=== PATIENT | female | born 1980 | race Caucasian/White ===

== ENCOUNTER 2021-01-21 07:34 | Emergency (ER) | payer MEDICARE, MEDICAID, SELFPAY ==
--- NOTE | ~2021-01-21 | CT_ITS ---
EXAMINATION: CT cervical spine wo con DATE: 01/21/2021 09:51 INDICATION: Fall with head injury TECHNIQUE: Computed tomography (CT) of the cervical spine was performed without intravenous contrast. Automated exposure control and iterative reconstruction technique were employed. The dose-length pro duct was 423.63 mGy-cm. COMPARISON: None FINDINGS: Mild cervical levocurvature which could be positional. Sagittal alignment is normal. Vertebral body a nd disc heights are normal. No fracture. Minimal to mild cervical uncovertebral and facet osteoarthri tis, the latter greatest on the left at C4-C5. No central canal or neural foraminal stenosis. 1.8 cm left thyroid nodule and subcentimeter rim calcified right thyroid nodule. Cervical soft tissues are o therwise unremarkable. Mild biapical emphysema. IMPRESSION: 1. Minimal cervical spondylosis. No acute osseous abnormality. 2. Mild emphysema. 2. Multinodular goiter including 1.8 cm left thyroid nodule. Consider thyroid ultrasound for risk str atification. Reviewed, dictated and finalized at location A. IMPRESSION: 1. Minimal cervical spondylosis. No acute osseous abnormality. 2. Mild emphysema. 2. Multinodular goiter including 1.8 cm left thyroid nodule. Consider thyroid u ltrasound for risk stratification.
--- NOTE | ~2021-01-21 | CT_ITS ---
EXAMINATION: CT brain wo con DATE: 01/21/2021 09:50 INDICATION: Head injury post fall with laceration at the forehead. TECHNIQUE: Computed tomography (CT) of the head was performed without intravenous contrast. Sagittal and coronal reconstructions were performed. The mA was adjusted according to patient size. Iterative reconstruction technique was employed. The dose-length product was 681.00 mGy-cm. COMPARISON: head CT dated 06/27/2014 FINDINGS: Old left frontotemporal parietal craniotomy. No acute fracture. Moderate sized region of encephalomal acia in the left frontal and temporal lobes and left basal ganglia likely sequela chronic infarct. Th ere is associated ex vacuo dilation of the left lateral ventricle. No acute intracranial hemorrhage, acute infarction or abnormal extra axial fluid collection. No mass/mass effect. The orbits, paranasal sinuses and mastoid air cells are normal. IMPRESSION: 1. No fracture or acute intracranial process. 2. Encephalomalacia in the left frontal and temporal lobes and left basal ganglia consistent with chr onic infarct in the left middle cerebral artery vascular distribution. Reviewed, dictated and finalized at location A. IMPRESSION: 1. No fracture or acute intracranial process. 2. Encephalomalacia in the left frontal and temporal lobes and left basal gangl ia consistent with chronic infarct in the left middle cerebral artery vascular distribution.
[2021-01-21 07:49] VITALS: BP 112/75; PULSE 80; RESP 16; TEMP 36.6; O2SAT 100
[2021-01-21 09:14] VITALS: BP 107/64; PULSE 67; RESP 18; O2SAT 98
[2021-01-21 09:18] LABS: Basophils Absolute Auto 0.05 K/mm3 (0.00-0.10); Basophils Percent Auto 0.6 % (0.0-1.0); Eosinophils Percent Auto 1.3 % (1.0-6.0); Hematocrit 28.3 % (35.0-49.0); Hemoglobin 8.3 g/dL (12.0-15.0); Immature Granulocyte Absolute 0.03 K/mm3 (0.00-0.00); Immature Granulocyte Percent A 0.4 % (0.0-0.0); Lymphocytes Absolute Auto 1.49 K/mm3 (1.10-4.50); Mean Corpuscular HGB Conc 29.3 g/dL (32.0-36.0); Mean Corpuscular Volume 75.1 fL (78.0-102.0); Monocytes Absolute Auto 0.45 K/mm3 (0.10-0.90); Monocytes Percent Auto 5.7 % (2.0-11.0); Neutrophils Absolute Auto 5.7 K/mm3 (1.7-7.2); Platelet Count Result 474 K/mm3 (150-420); Red Blood Count 3.77 M/mm3 (4.20-5.40); Red Cell Distribution Width 17.6 % (11.6-14.4); White Blood Count 7.8 K/mm3 (4.8-10.8)
[2021-01-21 09:27] LABS: SPREG INTERNAL CONTROL Positive; Serum Qual hCG Negative
[2021-01-21 09:31] LABS: INR 1.2; Partial Thromboplastin Time 27.6 SEC (23.90-30.70)
[2021-01-21 09:38] LABS: Alanine Aminotransferase 19 U/L (14-59); Albumin Level 3.3 g/dL (3.4-5.0); Alkaline Phosphatase 89 U/L (46-116); Anion Gap 8 mmol/L (8-16); Aspartate Amino Transferase 19 U/L (15-37); Bilirubin,Total 0.2 mg/dL (0.00-1.00); Blood Urea Nitrogen 5 mg/dL (7-18); Carbon Dioxide 30 mmol/L (21-32); Chloride 101 mmol/L (98-108); Estimated CRCL calculation 71 ml/min; Estimated Glomerular Filt Rate > 60; Glucose 91 mg/dL (70-99); Osmolality Calculated 285 mOsm/kg (285-295); Sodium 139 mmol/L (136-145); Total Protein 7.1 g/dL (6.4-8.2); Troponin I < 4.0 ng/L (0.00-60.4)
[2021-01-21 09:39] LABS: Ethanol < 3 mg/dL (0-6)
[2021-01-21 10:16] VITALS: BP 105/63; PULSE 68; RESP 18; O2SAT 99
--- NOTE | 2021-01-21 10:41 | ECG_ITS ---
Measurements Intervals [place] Rate: 63 P: 47 AR: 192 QRS: 20 QRSD: 73 T: 29 QT: 415 QTc: 427 Interpretive Statements SINUS RHYTHM BASELINE ARTIFACT- I, II, III, AVR, AVL, AVF NORMAL ECG Electronically Signed On 01-22-2021 7:20:29 CDT by Lew Newell D.O.
[2021-01-21] MEDS: POTASSIUM BICARBONATE 25 MEQ TABEF 50 MEQ PO (10:44)
--- NOTE | 2021-01-21 10:46 | ED.FALL ---
HPI - Fall General Chief Complaint: Fall Stated Complaint: Ambulance Source: patient and other (live in boyfriend) Mode of arrival: ambulatory Limitations: no limitations History of Present Illness HPI Narrative: Patient is brought in after a fall at home in which she feel on her forehead and scraped her forehead. She was coughing and after a coughing spell had a syncopal episode. She reportedly regularly has coughing spells. She was not responding well MD complaint: fall Onset (ago): minute(s) Fall from: other (off couch after a coughing spell) Place fall occurred: home Loss of consciousness: unsure Length of LOC: second(s) Prolonged down time: no Symptoms prior to fall: none Context: other (unclear as to cause) Location of injury: head (scraped forehead) Severity: moderate Associated symptoms (after fall): denies Related Data Home Medications Medication Instructions Recorded Confirmed cyclobenzaprine 10 mg PO TID PRN 01/21/21 01/21/21 escitalopram oxalate 20 mg PO DAILY 01/21/21 01/21/21 levetiracetam 750 mg PO Q12H 01/21/21 01/21/21 rivaroxaban [Xarelto] 20 mg PO DAILY 01/21/21 01/21/21 Allergies Allergy/AdvReac Type Severity Reaction Status Date / Time Sulfa (Sulfonamide Allergy Unknown Verified 01/21/21 08:02 Antibiotics) msg Allergy Agitated Uncoded 01/21/21 08:02 Review of Systems Constitutional: Constitutional: Reports no additional constitutional complaints Eyes: Eyes: Reports no additional eye complaints ENT: Reports system reviewed and no additional complaints, except as documented Cardiovascular: Cardiovascular: Reports no additional cardiovascular complaints Respiratory: Respiratory: Reports no additional respiratory complaints Gastrointestinal: Gastrointestinal: Reports no additional gastrointestinal complaints Genitourinary: Genitourinary: Reports no additional female genitourinary complaints Musculoskeletal: Musculoskeletal: Reports no additional musculoskeletal complaints Integumentary/Breasts: Skin/Breast: Reports system reviewed and no additional complaints, except as docu Neurologic: Reports system reviewed and no additional complaints, except as documented Psychiatric: Psychiatric: Reports no additional psychiatric complaints Endocrine: Endocrine: Reports no additional endocrine complaints Hematologic/Lymphatic: Hematologic/Lymphatic: Reports no additional hematologic/lymphatic complaints Allergic/Immunologic: Allergic/Immunologic: Reports no additional allergic/immunologic complaints [facility] Past Medical History Medical History (Updated 01/21/21 @ 11:14 by Wilfredo Billingsley MD) CVA (cerebral vascular accident) Epilepsy Surgical History Surgical History (Updated 01/21/21 @ 11:03 by Wilfredo Billingsley MD) H/O adenoidectomy H/O tubal ligation Family History Family History (Updated 01/21/21 @ 11:05 by Wilfredo Billingsley MD) Father CAD (coronary artery disease) Hypertension Social History Social History (Updated 01/21/21 @ 11:06 by Wilfredo Billingsley MD) Smoking status: Current every day smoker Tobacco type: cigarettes Alcohol intake: never Living arrangements: with friend(s) Occupation/Education: unemployed Sexual Orientation (if Verbalized by the Patient): Straight or Heterosexual Exam Const: General: no acute distress Orientation/consciousness: patient oriented x3 Limitations: altered mental status HENMT: Head: normal to inspection Ears: external ears normal and TM's normal bilaterally General nose exam: Normal external nose present Mouth: Yes Normal oral and palatal mucosa present Throat: posterior oropharynx normal Eyes: Conjunctivae: conjunctivae normal Neck: Neck: normal visual inspection Chest: Chest palpation & inspection: normal inspection of the chest Resp: Effort & Inspection: normal respiratory effort Auscultation: clear to auscultation bilaterally Cardio: Rate: regular rate Rhythm: regular rhythm GI: Auscultation: normal bowel
[2021-01-21 10:47] LABS: Appearance Urine Clear (Clear); Bilirubin Urine Negative (Negative); Color Urine Yellow (Yellow); Glucose Urine UA Negative (Negative); Ketones Urine Negative (Negative); Leukocyte Esterase Ur 1+ (Negative); Nitrate Urine Negative (Negative); Protein Urine Negative (Negative); Urobilinogen Urine 0.2 mg/dL (0.2-1.0)
[2021-01-21 10:51] LABS: Add Urine Microscopic? YES; Bacteria Urine Trace /hpf; Blood Urine Trace-lysed (Negative); RBC Urine 0-2 /hpf (0-2); Squamous Epithelial Cell Urine Few /hpf (Few); WBC Urine 0-3 /hpf (0-3)
[2021-01-21 10:52] LABS: Magnesium 2.4 mg/dL (1.8-2.4)
[2021-01-21 11:20] VITALS: BP 158/73; PULSE 86; RESP 16; O2SAT 98
[2021-01-21 12:00] VITALS: BP 117/71; PULSE 71; RESP 16; O2SAT 97
[2021-01-22 14:40] LABS: Free T4 Free Thyroxine 1.15 ng/dL (0.76-1.46); Thyroid Stimulating Hormone 0.97 uIU/mL (0.36-3.74)
== END 2021-01-21 12:00 | disposition home or self-care (01) ==
PROVIDERS: Emergency Provider Emergency Medicine; PCP Family Medicine
DX: R55 Syncope and collapse (principal); N30.01 Acute cystitis with hematuria; D50.0 Iron deficiency anemia secondary to blood loss (chronic); Z79.899 Other long term (current) drug therapy; Z86.73 Personal history of transient ischemic attack (TIA), and cerebral infarction without residual deficits; F17.200 Nicotine dependence, unspecified, uncomplicated
CPT/HCPCS: 36415; 70450; 72125; 80053; 80307; 81001; 83735; 84439; 84443; 84484; 84703; 85025; 85610; 85730; 93005; 96365; 99283; 99284; A9270; J0696

== ENCOUNTER 2021-01-24 12:14 | Outpatient (CLI) | payer MEDICARE, MEDICAID, SELFPAY ==
--- NOTE | ~2021-01-24 | US_ITS ---
US thyroid INDICATION: Follow-up thyroid nodules TECHNIQUE: Real-time sonographic images of the thyroid gland were obtained. COMPARISON: No prior studies for comparison. FINDINGS: The right thyroid lobe measures 5.5 x 1.5 x 1.7 cm. The left thyroid lobe measures 4.8 x 1 .8 x 1.5 cm. Thyroid echotexture is diffusely heterogeneous with multiple bilateral thyroid nodules. Isthmus measures 3 mm. The largest dominant mass in the right thyroid gland measures 8 x 8 x 7 mm and appears solid, predominantly hypoechoic, wider than tall, circumscribed margins with peripheral calc ifications, TR 4 (moderately suspicious). There are multiple left thyroid masses, largest dominant ma ss is almost completely solid, slightly hyperechoic, wider than tall, irregular margins without defin ite calcifications. This mass measures 1.6 x 1.6 x 1.6 cm, TR 4, moderately suspicious. IMPRESSION: 1. Enlarged thyroid gland containing multiple bilateral masses. Recommend ultrasound-guided fine-nee dle aspiration biopsy of dominant bilateral thyroid masses. Reviewed, dictated and finalized at location A. IMPRESSION: 1. Enlarged thyroid gland containing multiple bilateral masses. Recommend ultr asound-guided fine-needle aspiration biopsy of dominant bilateral thyroid pamela s.
== END 2021-01-24 12:15 | disposition home or self-care (01) ==
LOC: CHSIMG 12:18
PROVIDERS: PCP Family Medicine; Visit Provider Family Medicine
DX: E04.1 Nontoxic single thyroid nodule (principal)
CPT/HCPCS: 76536

== ENCOUNTER → 2021-01-27 04:10 | Outpatient (CLI) | payer MEDICARE, MEDICAID, SELFPAY ==
[2021-01-27 19:45] LABS: SARS-CoV-2 RNA PCR Negative
== END ==
PROVIDERS: PCP Family Medicine; Visit Provider Internal Medicine Gastroenterology
DX: Z01.812 Encounter for preprocedural laboratory examination (principal); Z20.822 Contact with and (suspected) exposure to COVID-19
CPT/HCPCS: C9803; U0003; U0005

== ENCOUNTER 2021-01-31 01:45 | Day surgery (SDC) | payer MEDICARE, MEDICAID, SELFPAY ==
[2021-01-25 16:13] VITALS: BMI 28.3
[2021-01-31] MEDS: LACTATED RINGERS 1,000 ML 150 ML IV CONT (10:21)
[2021-01-31 10:28] VITALS: BP 103/64; PULSE 78; RESP 18; TEMP 36.9; O2SAT 100
--- NOTE | 2021-01-31 10:38 | WPDANESEPPF ---
Anes - Initial Pre Proc Eval Procedure: Operation Date: 01/31/21 11:00 Proposed Procedures p Esophagogastroduodenoscopy & Colonoscopy - Wilfredo Dooley MD Date/Time: 01/31/21 10:38 Surgeon: Wilfredo Dooley MD Pre Op Diagnosis: iron deficiency anemia Patient Data Age: 40 Gender: F Height: 5 ft 3 in Weight: 73 kg Last Vital Signs Temp 98.4 F 01/31/21 10:28 Pulse 78 01/31/21 10:28 Resp 18 01/31/21 10:28 BP 103/64 01/31/21 10:28 Pulse Ox 100 01/31/21 10:28 Allergies Allergy/AdvReac Type Severity Reaction Status Date / Time Sulfa (Sulfonamide Allergy Severe Headache Verified 01/31/21 09:49 Antibiotics) msg Allergy Severe Headache Uncoded 01/31/21 09:49 Home Medications Medication Instructions Recorded Confirmed Type cephalexin 500 mg PO Q8H #15 cap 01/21/21 01/31/21 Rx cyclobenzaprine 10 mg PO DAILY 01/21/21 01/25/21 History escitalopram oxalate 20 mg PO DAILY 01/21/21 01/25/21 History levetiracetam 500 mg PO Q12H 01/21/21 01/31/21 History rivaroxaban [Xarelto] 20 mg PO DAILY 01/21/21 01/31/21 History ascorbic acid (vitamin C) 500 mg PO DAILY 01/25/21 01/25/21 History ferrous sulfate 325 mg PO BID 01/25/21 01/25/21 History Patient hx anesthesia problems: none Family hx anesthesia problems: none PMFSH Past Medical History Medical History (Updated 01/31/21 @ 10:43 by Wilfredo Dooley MD) CVA (cerebral vascular accident) Epilepsy Surgical History Surgical History (Updated 01/21/21 @ 11:03 by Wilfredo Billingsley MD) H/O adenoidectomy H/O tubal ligation Family History Family History (Updated 01/21/21 @ 11:05 by Wilfredo Billingsley MD) Father CAD (coronary artery disease) Hypertension Social History Social History (Updated 01/21/21 @ 11:06 by Wilfredo Billingsley MD) Smoking packs per day: 0.75 Smoking cigarettes per day: 15.0 Years smoked: 25 Smoking pack-years: 18.75 Smoking status: Light tobacco smoker Tobacco type: cigarettes Alcohol intake: never Substance use: current Substance use type: marijuana Other substance usage details: DAILY Living arrangements: with family Spiritual care concerns: No Anes - Eval Final PreProcedure Day of Procedure 01/31/21 10:38 Patient weight: overweight Heart: regular rate and rhythm Lungs: clear to auscultation Airway: Mallampati scale class III Neurological: alert and oriented Last oral intake: >/= 8 hours ASA classification: III Emergent: no Anesthetic plan: proceed Anesthesia type and monitoring: general GIVS and standard monitoring Informed Consent: The patient's anesthetic plan and its attendant risks and benefits were discussed with the patient/family/POA. Questions were solicited and answers provided to the satisfaction of the patient/family/POA.
--- NOTE | 2021-01-31 10:39 | WPDGICN ---
Assessment and Plan Assessment and plan (1) LILY (iron deficiency anemia): Code(s): D50.9 - Iron deficiency anemia, unspecified Status: Acute Assessment and Plan: Because of iron deficiency anemia and need for continued anticoagulation colonoscopy an EGD will be performed. If this not fruitful small bowel series would subsequently be considered. Iron replacement will be held briefly prior to endoscopy and restarted subsequently. Follow-up CBC advised after an interval to ensure response to therapy. Patient gives no obvious explanation for her iron deficiency anemia otherwise. (2) Chronic anticoagulation: Code(s): Z79.01 - terminal press operator (current) use of anticoagulants Status: Acute (3) Seizure disorder: Code(s): G40.909 - Epilepsy, unspecified, not intractable, without status epilepticus Status: Acute (4) History of CVA (cerebrovascular accident): Code(s): Z86.73 - Personal history of transient ischemic attack (TIA), and cerebral infarction without residual deficits Status: Acute GI Consult Note Consult date/time: 01/31/21 10:39 HPI: Abril Valera is a 40 year old female Referred because of iron deficiency anemia. 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 Because of this she suffers with seizure disorder and has been treated for depression. She had a DVT on her right lower extremity 2 years ago and has been maintained on Xarelto subsequently. Recently has complaints of nausea frequently. She is found to have iron deficiency anemia and is referred for both colonoscopy an EGD to evaluate more thoroughly. Patient denies any obvious blood in her stools. However she was identified as having occult blood in her urine, with a urinary tract infection, and may have had occult blood in her stool as well. Patient has recently completed treatment for urinary tract infection. Her family history is noncontributory. Review of Systems Review of Systems: All systems reviewed & are unremarkable except as noted in HPI and below PMFSH Past Medical History Medical History (Updated 01/31/21 @ 10:43 by Wilfredo Dooley MD) CVA (cerebral vascular accident) Epilepsy Surgical History Surgical History (Updated 01/21/21 @ 11:03 by Wilfredo Billingsley MD) H/O adenoidectomy H/O tubal ligation Family History Family History (Updated 01/21/21 @ 11:05 by Wilfredo Billingsley MD) Father CAD (coronary artery disease) Hypertension Social History Social History (Updated 01/21/21 @ 11:06 by Wilfredo Billingsley MD) Smoking packs per day: 0.75 Smoking cigarettes per day: 15.0 Years smoked: 25 Smoking pack-years: 18.75 Smoking status: Light tobacco smoker Tobacco type: cigarettes Alcohol intake: never Substance use: current Substance use type: marijuana Other substance usage details: DAILY Living arrangements: with family Spiritual care concerns: No Meds Home Medications and Allergies Home Medications Medication Instructions Recorded Confirmed Type cephalexin 500 mg PO Q8H #15 cap 01/21/21 01/31/21 Rx cyclobenzaprine 10 mg PO DAILY 01/21/21 01/25/21 History escitalopram oxalate 20 mg PO DAILY 01/21/21 01/25/21 History levetiracetam 500 mg PO Q12H 01/21/21 01/31/21 History rivaroxaban [Xarelto] 20 mg PO DAILY 01/21/21 01/31/21 History ascorbic acid (vitamin C) 500 mg PO DAILY 01/25/21 01/25/21 History ferrous sulfate 325 mg PO BID 01/25/21 01/25/21 History Allergies Allergy/AdvReac Type Severity Reaction Status Date / Time Sulfa (Sulfonamide Allergy Severe Headache Verified 01/31/21 09:49 Antibiotics) msg Allergy Severe Headache Uncoded 01/31/21 09:49 Vital Signs Vital Signs - 24 hr 01/31/21 10:28 Temperature 98.4 F Pulse Rate 78 Respiratory Rate 18 Blood Pressure 103/64 Pulse Oximetry 100 Exam Narrative: Exam Narrative: Physical exam reveals patient's vital signs be stable. HEENT exam reveals no scleral icteru
[2021-01-31] MEDS: ONDANSETRON INJ 4 MG/2 ML VIAL IV PUSH (10:45)
[2021-01-31] MEDS: BENZOCAINE (*SP) 60 ML SPRAY CAN (HURRICAINE) 1 SPRAY MUCOUS MEM (11:03)
[2021-01-31 11:32] VITALS: BP 128/78; PULSE 83; RESP 27; O2SAT 100
[2021-01-31 11:42] VITALS: BP 107/82; PULSE 74; RESP 17; O2SAT 100
[2021-01-31 11:52] VITALS: BP 120/82; PULSE 65; RESP 22; O2SAT 98
== END 2021-01-31 12:14 | disposition home or self-care (01) ==
PROVIDERS: PCP Family Medicine; Visit Provider Internal Medicine Gastroenterology
PROC: 0DJ08ZZ Inspection of Upper Intestinal Tract, Via Natural or Artificial Opening Endoscopic (ICD-10-PCS; CPT 43235; principal; 2021-01-31 11:00)
DX: D50.9 Iron deficiency anemia, unspecified (principal); K57.30 Diverticulosis of large intestine without perforation or abscess without bleeding; K64.8 Other hemorrhoids; K63.5 Polyp of colon; K22.70 Barrett's esophagus without dysplasia; K21.00 Gastro-esophageal reflux disease with esophagitis, without bleeding; G40.909 Epilepsy, unspecified, not intractable, without status epilepticus; Z79.01 Long term (current) use of anticoagulants; Z86.73 Personal history of transient ischemic attack (TIA), and cerebral infarction without residual deficits; F12.90 Cannabis use, unspecified, uncomplicated; F17.210 Nicotine dependence, cigarettes, uncomplicated
CPT/HCPCS: 45385; 43239; 88305; J2001; J2405; J2704; J7120

== ENCOUNTER 2021-02-20 13:07 | Outpatient (CLI) | payer MEDICARE, MEDICAID, SELFPAY ==
--- NOTE | ~2021-02-20 | US_ITS ---
EXAMINATION: US FNA w image guidance DATE: 02/20/2021 14:36 INDICATION: Bilateral thyroid nodules TECHNIQUE: A time-out was performed to verify the patient's name, date of , and procedure to be performed . Forensic Nurse images and images from prior thyroid ultrasound for reviewed. On both the prior and current s tudy the largest nodules in the right thyroid lobe corresponds to an 8 mm wide than tall, peripherall y calcified solid hypoechoic nodule with smooth margins for which TI RADS recommendation would be for annual follow-up (TI-RADS 4, moderately suspicious , FNA if >=1.5 cm, annual followup is >=1 cm). Th e procedure and its benefits and risks were discussed with the patient. Risks specifically discussed included bleeding and infection. I also discussed the right thyroid nodule not. The patient options o f either proceeding with biopsy or continued with annual ultrasound follow-up. The patient elected to defer biopsy of the right thyroid nodule. The patient understood the risks and agreed to proceed wit h biopsy of the left thyroid nodule. The neck was prepped and draped in the usual sterile manner. 3 mL 1% lidocaine was used for local anesthesia. 6 passes were made with a 25G needle into the lesion. Appropriate needle location was documented with continuous sonographic guidance. The specimens wer e passed to the radioisotope technologist in the room. A sterile bandage was applied. There were no immediate complications. FINDINGS: Grayscale ultrasound images demonstrate biopsy needles advanced into the 2.6 cm TI-RADS 4 right thyro id nodule. IMPRESSION: 1. Successful ultrasound-guided fine needle aspiration of the 2.6 cm TI-RADS 4 right thyroid nodule of concern. 2. Following discussion with the patient was elected to defer biopsy of the 8 mm TI-RADS 4 left thyro id nodule for which one-year ultrasound follow-up is indicated. Reviewed, dictated and finalized at location A. IMPRESSION: 1. Successful ultrasound-guided fine needle aspiration of the 2.6 cm TI-RADS 4 right thyroid nodule of concern. 2. Following discussion with the patient was elected to defer biopsy of the 8 m m TI-RADS 4 left thyroid nodule for which one-year ultrasound follow-up is iraj cated.
== END 2021-02-20 13:08 | disposition home or self-care (01) ==
LOC: ANHIMG 13:11
PROVIDERS: PCP Family Medicine; Visit Provider Family Medicine
DX: E04.9 Nontoxic goiter, unspecified (principal)
CPT/HCPCS: 10005; 88173; 88305

== ENCOUNTER 2022-03-11 14:15 | Emergency (ER) | payer MEDICARE, MEDICAID, SELFPAY ==
--- NOTE | ~2022-03-11 | CT_ITS ---
EXAMINATION: CT brain wo con DATE: 03/11/2022 15:29 INDICATION: Headache. TECHNIQUE: Computed tomography (CT) of the head was performed without intravenous contrast. The mA wa s adjusted according to patient size. Iterative reconstruction technique was employed. The dose-lengt h product was 681.00 mGy-cm. COMPARISON: Head CT 01/21/2021 FINDINGS: There is chronic encephalomalacia involving left frontal, temporal, and parietal lobes, lef t insula, and left basal ganglia. There are changes of left-sided craniotomy. There is no intracrania l hemorrhage, acute infarction, or abnormal intracranial mass lesion. There is ex vacuo dilatation of posterior body and temporal horn of left lateral ventricle. There is leftward displacement of the se ptum pellucidum. There is chronic 3 mm leftward midline shift at the foramen of Monro. There is anter oposterior elongation of the ocular globes. There is mild mucosal thickening in the ethmoid sinuses. The mastoid air cells are normal. IMPRESSION: 1. Left-sided chronic encephalomalacia. Reviewed, dictated and finalized at location A.
--- NOTE | ~2022-03-11 | XR_ITS ---
EXAMINATION: XR chest 1V portable 03/11/2022 17:35 INDICATION: Cough with weakness and shortness of breath PROCEDURE: AP portable chest COMPARISON: Comparison to multiple prior studies sequentially, with oldest reviewed study dated 06/02. FINDINGS: The lungs are clear. The cardiomediastinal silhouette is within normal limits. There are no pleural effusions. There is no pneumothorax suspected. IMPRESSION: 1: NO ACUTE CARDIOPULMONARY DISEASE. Reviewed, dictated and finalized at location A.
[2022-03-11 14:20] VITALS: BP 109/68; PULSE 73; RESP 16; TEMP 36.6; O2SAT 98
--- NOTE | 2022-03-11 14:32 | ED.HA ---
HPI - Headache General Chief Complaint: Headache Stated Complaint: dizziness, vomiting, headache, head pain/swelling Time Seen by Provider: 03/11/22 14:32 Source: patient and family Mode of arrival: wheelchair Limitations: language barrier and physical limitation History of Present Illness HPI Narrative: 41-year-old female with a history of cerebral aneurysm status post craniotomy 2013, right hemiplegia, seizure disorder on anticoagulation presents to the ER with -- severe generalized headache for the past 1 week -- she a transient glazed look with altered mental status which lasted an hour. She had her last seizure 8 years ago. No tonic clonic activity noted. -- Swelling over her left parietal flap and swelling of her left face -- no fever -- has nausea without any vomiting. -- No new focal neuro deficits. She has right-sided hemiplegia. MD elicited complaint: headache Pertinent past history: coagulopathy Onset (ago): week(s) ( started 1 week ago.) Onset description: gradually Location: diffuse Severity: severe Quality & Timing: aching Exacerbating factors: none Relieving factors: nothing Context: occurred at rest Associated symptoms: none, nausea and photophobia Treatments prior to arrival: none Related Data Home Medications Medication Instructions Recorded Confirmed cyclobenzaprine 10 mg tablet 10 mg PO DAILY 01/21/21 03/11/22 escitalopram oxalate 20 mg tablet 20 mg PO DAILY 01/21/21 03/11/22 levetiracetam 500 mg tablet 500 mg PO Q12H 01/21/21 03/11/22 rivaroxaban 20 mg tablet (Xarelto) 20 mg PO DAILY 01/21/21 03/11/22 ascorbic acid (vitamin C) 500 mg 500 mg PO DAILY 01/25/21 03/11/22 tablet ferrous sulfate 325 mg (65 mg 325 mg PO BID 01/25/21 03/11/22 iron) capsule,extended release Allergies Allergy/AdvReac Type Severity Reaction Status Date / Time Sulfa (Sulfonamide Allergy Severe Headache Verified 03/11/22 14:30 Antibiotics) msg Allergy Severe Headache Uncoded 01/31/21 09:49 Review of Systems Review of Systems: All systems reviewed & are unremarkable except as noted in HPI and below Constitutional: Constitutional: Reports as per HPI and Reports no additional constitutional complaints Eyes: Eyes: Reports as per HPI, Reports no additional eye complaints and Reports photophobia ENT: Reports system reviewed and no additional complaints, except as documented and Reports as per HPI Cardiovascular: Cardiovascular: Reports as per HPI and Reports no additional cardiovascular complaints Respiratory: Respiratory: Reports as per HPI and Reports no additional respiratory complaints Gastrointestinal: Gastrointestinal: Reports as per HPI and Reports no additional gastrointestinal complaints Genitourinary: Genitourinary: Reports no additional female genitourinary complaints and Reports as per HPI Musculoskeletal: Musculoskeletal: Reports no additional musculoskeletal complaints and Reports as per HPI Integumentary/Breasts: Skin/Breast: Reports system reviewed and no additional complaints, except as docu and Reports as per HPI Neurologic: Reports system reviewed and no additional complaints, except as documented and Reports as per HPI Comments: Left hemiplegia with dysarthria Psychiatric: Psychiatric: Reports no additional psychiatric complaints and Reports as per HPI Endocrine: Endocrine: Reports no additional endocrine complaints and Reports as per HPI Hematologic/Lymphatic: Hematologic/Lymphatic: Reports no additional hematologic/lymphatic complaints and Reports as per HPI Allergic/Immunologic: Allergic/Immunologic: Reports no additional allergic/immunologic complaints and Reports as per HPI [facility] Past Medical History Medical History (Updated 03/11/22 @ 18:16 by Abel Monahan MD) Cerebral aneurysm CVA (cerebral vascular accident) Epilepsy Surgical History Surgical History (Updated 01/21/21 @ 11:03 by Wilfredo Billingsley MD) H/O adenoidectomy H/O tubal ligation Family History
--- NOTE | 2022-03-11 14:42 | ECG_ITS ---
Measurements Intervals [place] Rate: 70 P: 52 [place]: 193 QRS: 18 QRSD: 87 T: 46 QT: 409 QTc: 443 Interpretive Statements SINUS RHYTHM DELAYED PRECORDIAL R/S TRANSITION BASELINE ARTIFACT- I, III, AVR, AVL, AVF, V5 BORDERLINE ECG Electronically Signed On 03-11-2022 15:09:46 CDT by Lew Newell D.O.
[2022-03-11 15:17] LABS: Basophils Absolute Auto 0.06 K/mm3 (0.00-0.10); Basophils Percent Auto 0.7 % (0.0-1.0); Eosinophils Absolute Auto 0.24 K/mm3 (0.02-0.50); Eosinophils Percent Auto 2.8 % (1.0-6.0); Hematocrit 41.5 % (35.0-49.0); Hemoglobin 14.1 g/dL (12.0-15.0); Immature Granulocyte Absolute 0.03 K/mm3 (0.00-0.00); Immature Granulocyte Percent A 0.4 % (0.0-0.0); Lymphocytes Absolute Auto 2.81 K/mm3 (1.10-4.50); Lymphocytes Percent Auto 33.2 % (18.0-42.0); Mean Corpuscular Hemoglobin 32.3 pg (27.0-31.0); Mean Platelet Volume 9.6 fl (9.2-11.8); Monocytes Absolute Auto 0.47 K/mm3 (0.10-0.90); Monocytes Percent Auto 5.5 % (2.0-11.0); Neutrophils Absolute Auto 4.9 K/mm3 (1.7-7.2); Neutrophils Percent Auto 57.4 % (50.0-70.0); Platelet Count Result 324 K/mm3 (150-420); Red Blood Count 4.37 M/mm3 (4.20-5.40); Red Cell Distribution Width 12.2 % (11.6-14.4); White Blood Count 8.5 K/mm3 (4.8-10.8)
--- NOTE | 2022-03-11 15:29 | PC.NURSE ---
pt in ct at this time.
[2022-03-11 15:43] LABS: Lactic Acid Reflex 2.3 mmol/L (0.4-2.0)
[2022-03-11 15:47] LABS: Alanine Aminotransferase 14 U/L (14-59); Albumin Level 3.5 g/dL (3.4-5.0); Alkaline Phosphatase 75 U/L (46-116); Anion Gap 7 mmol/L (8-16); Aspartate Amino Transferase 11 U/L (15-37); Bilirubin,Total 0.2 mg/dL (0.00-1.00); Blood Urea Nitrogen 5 mg/dL (7-18); Calcium 8.9 mg/dL (8.5-10.1); Carbon Dioxide 30 mmol/L (21-32); Chloride 103 mmol/L (98-108); Estimated CRCL calculation 77 ml/min; Estimated Glomerular Filt Rate > 60; Glucose 96 mg/dL (70-99); Magnesium 2.1 mg/dL (1.8-2.4); Osmolality Calculated 287 mOsm/kg (285-295); Potassium 2.8 mmol/L (3.5-5.1); Sodium 140 mmol/L (136-145); Thyroid Stimulating Hormone 1.01 uIU/mL (0.36-3.74); Total Protein 7.4 g/dL (6.4-8.2); Troponin I 4.6 ng/L (0.00-60.4)
--- NOTE | 2022-03-11 16:05 | PC.NURSE ---
pt is reporting pain to left side of head and face, states she is hungry and wants something to drink. erp aware. currently awaiting results. sig other at bedside. will continue to monitor.
[2022-03-11] MEDS: HYDROmorphone HCL INJ (*CRX) 2 MG/ML VIAL 0.5 MG IM (16:21)
[2022-03-11] MEDS: POTASSIUM CHLORIDE 20 MEQ TABLET 40 MEQ PO ×2 (16:22→18:05)
[2022-03-11] MEDS: ONDANSETRON HCL ODT 4 MG TABLET PO (16:23)
[2022-03-11] MEDS: SPIRONOLACTONE 25 MG TABLET PO (16:23)
--- NOTE | 2022-03-11 16:28 | PC.NURSE ---
sig other reports she had came back from the [place] earlier today, was confused, had a glazed over look on her face and fell over on the couch. pt is more alert at this time, states she does have a hx of seizures. pt is reporting pain, medication given as ordered. will continue to monitor.
[2022-03-11 16:29] VITALS: BP 90/54; PULSE 73; RESP 16; O2SAT 99
[2022-03-11 16:30] LABS: INR 1.2; Partial Thromboplastin Time 37.3 SEC (23.90-30.70)
[2022-03-11 16:46] LABS: Appearance Urine Clear (Clear); Bilirubin Urine Negative (Negative); Color Urine Light Yellow (Yellow); Glucose Urine UA Negative (Negative); Ketones Urine Negative (Negative); Leukocyte Esterase Ur Trace (Negative); Nitrate Urine Negative (Negative); Protein Urine Negative (Negative); Specific Grav Ur <= 1.005 (1.010-1.020); Urobilinogen Urine 0.2 mg/dL (0.2-1.0)
[2022-03-11 16:50] LABS: Add Urine Microscopic? YES; Blood Urine Trace-Intact (Negative); RBC Urine 0-2 /hpf (0-2); Squamous Epithelial Cell Urine Rare /hpf (Few); WBC Urine 0-3 /hpf (0-3)
[2022-03-11 16:51] LABS: Bacteria Urine Trace /hpf; Urine Pregnancy Test Negative
[2022-03-11 16:52] LABS: Pregnancy On Board Control Positive
[2022-03-11 17:50] VITALS: BP 102/71; PULSE 64; RESP 16; TEMP 36.6; O2SAT 98
--- NOTE | 2022-03-11 17:51 | PC.NURSE ---
PT IS RESTING ON STRETCHER IN EXAM ROOM, REPORTS SHE IS FEELING MUCH BETTER. SIG OTHER AT BEDSIDE. NAD NOTED. WILL CONTINUE TO MONITOR.
[2022-03-11 18:15] LABS: Reflex Lactic Acid Yes or No Add Lactic
[2022-03-11 18:24] VITALS: BP 109/77; PULSE 68; RESP 16; O2SAT 95
[2022-03-11] MEDS: diphenhydrAMINE HCl CAP 25 MG CAPSULE PO (18:33)
== END 2022-03-11 18:38 | disposition home or self-care (01) ==
PROVIDERS: Emergency Provider Internal Medicine Critical Care Medicine; PCP Family Medicine
DX: R51.9 Headache, unspecified (principal); R41.82 Altered mental status, unspecified; E87.6 Hypokalemia; Z86.73 Personal history of transient ischemic attack (TIA), and cerebral infarction without residual deficits
CPT/HCPCS: 36415; 70450; 71045; 80053; 81001; 81025; 83605; 83735; 84443; 84484; 85025; 85610; 85730; 93005; 96372; 99284; A9270; J1170

== ENCOUNTER 2022-06-13 16:00 | Outpatient (CLI) | payer MEDICARE, MEDICAID, SELFPAY ==
[2022-06-13 16:18] LABS: Basophils Absolute Auto 0.05 K/mm3 (0.00-0.10); Basophils Percent Auto 0.4 % (0.0-1.0); Eosinophils Absolute Auto 0.24 K/mm3 (0.02-0.50); Hematocrit 39.7 % (35.0-49.0); Hemoglobin 13.4 g/dL (12.0-15.0); Immature Granulocyte Absolute 0.04 K/mm3 (0.00-0.00); Immature Granulocyte Percent A 0.3 % (0.0-0.0); Lymphocytes Absolute Auto 2.45 K/mm3 (1.10-4.50); Lymphocytes Percent Auto 20.9 % (18.0-42.0); Mean Corpuscular HGB Conc 33.8 g/dL (32.0-36.0); Mean Corpuscular Hemoglobin 32.8 pg (27.0-31.0); Mean Corpuscular Volume 97.3 fL (78.0-102.0); Mean Platelet Volume 10.1 fl (9.2-11.8); Monocytes Absolute Auto 0.74 K/mm3 (0.10-0.90); Monocytes Percent Auto 6.3 % (2.0-11.0); Neutrophils Absolute Auto 8.2 K/mm3 (1.7-7.2); Neutrophils Percent Auto 70.1 % (50.0-70.0); Platelet Count Result 234 K/mm3 (150-420); Red Blood Count 4.08 M/mm3 (4.20-5.40); Red Cell Distribution Width 12.3 % (11.6-14.4); White Blood Count 11.7 K/mm3 (4.8-10.8)
[2022-06-13 16:43] LABS: Alanine Aminotransferase 12 U/L (14-59); Albumin Level 3.7 g/dL (3.4-5.0); Alkaline Phosphatase 58 U/L (46-116); Amylase 38 U/L (25-115); Anion Gap 6 mmol/L (8-16); Aspartate Amino Transferase < 10 U/L (15-37); Bilirubin,Total 0.2 mg/dL (0.00-1.00); Blood Urea Nitrogen 7 mg/dL (7-18); Calcium 8.7 mg/dL (8.5-10.1); Carbon Dioxide 33 mmol/L (21-32); Chloride 103 mmol/L (98-108); Estimated Glomerular Filt Rate > 60; Glucose 87 mg/dL (70-99); Lipase 35 U/L (73-393); Osmolality Calculated 291 mOsm/kg (285-295); Potassium 3.7 mmol/L (3.5-5.1); Sodium 142 mmol/L (136-145); Total Protein 6.7 g/dL (6.4-8.2)
== END 2022-06-13 16:01 | disposition home or self-care (01) ==
LOC: CHSLAB 16:04
PROVIDERS: PCP Family Medicine; Visit Provider Family Medicine
DX: R11.10 Vomiting, unspecified (principal)
CPT/HCPCS: 36415; 80053; 82150; 83690; 85025

== ENCOUNTER 2022-06-14 08:08 | Outpatient (CLI) | payer MEDICARE, SELFPAY ==
[2022-06-14 08:17] LABS: Bilirubin Urine 1+ (Negative); Blood Urine Negative (Negative); Glucose Urine UA Negative (Negative); Ketones Urine 2+ (Negative); Leukocyte Esterase Ur 1+ LEU/UL (Negative); Nitrate Urine Negative (Negative); Protein Urine 1+ (Negative); Specific Grav Ur >= 1.030 (1.010-1.020); Urobilinogen Urine 0.2 mg/dL (0.2-1.0)
[2022-06-14 08:25] LABS: Add Urine Microscopic? YES; Appearance Urine Cloudy (Clear); Color Urine Dark Yellow (Yellow); RBC Urine 0-2 /hpf (0-2)
[2022-06-14 08:26] LABS: Amorphous Sediment Urine Heavy; Bacteria Urine Unable to determine /hpf; Squamous Epithelial Cell Urine Many /hpf (Few)
== END 2022-06-14 08:09 | disposition home or self-care (01) ==
LOC: CHSLAB 08:10
PROVIDERS: PCP Family Medicine; Visit Provider Family Medicine
DX: R11.10 Vomiting, unspecified (principal); R82.90 Unspecified abnormal findings in urine
CPT/HCPCS: 81001; 87077; 87086; 87088; 87186

== ENCOUNTER 2022-08-28 08:29 | Outpatient (CLI) | payer MEDICARE, SELFPAY ==
[2022-08-28 08:48] LABS: Basophils Absolute Auto 0.04 K/mm3 (0.00-0.10); Basophils Percent Auto 0.4 % (0.0-1.0); Eosinophils Absolute Auto 0.33 K/mm3 (0.02-0.50); Eosinophils Percent Auto 3.4 % (1.0-6.0); Hemoglobin 13.4 g/dL (12.0-15.0); Immature Granulocyte Absolute 0.03 K/mm3 (0.00-0.00); Immature Granulocyte Percent A 0.3 % (0.0-0.0); Lymphocytes Absolute Auto 3.42 K/mm3 (1.10-4.50); Lymphocytes Percent Auto 35.3 % (18.0-42.0); Mean Corpuscular HGB Conc 34.4 g/dL (32.0-36.0); Mean Corpuscular Hemoglobin 32.8 pg (27.0-31.0); Mean Corpuscular Volume 95.4 fL (78.0-102.0); Mean Platelet Volume 10.5 fl (9.2-11.8); Monocytes Absolute Auto 0.76 K/mm3 (0.10-0.90); Monocytes Percent Auto 7.8 % (2.0-11.0); Neutrophils Absolute Auto 5.1 K/mm3 (1.7-7.2); Neutrophils Percent Auto 52.8 % (50.0-70.0); Platelet Count Result 256 K/mm3 (150-420); Red Blood Count 4.09 M/mm3 (4.20-5.40); Red Cell Distribution Width 12.8 % (11.6-14.4); White Blood Count 9.7 K/mm3 (4.8-10.8)
[2022-08-28 09:14] LABS: Alanine Aminotransferase 26 U/L (14-59); Albumin Level 3.8 g/dL (3.4-5.0); Alkaline Phosphatase 56 U/L (46-116); Anion Gap 11 mmol/L (8-16); Aspartate Amino Transferase 13 U/L (15-37); Bilirubin,Total 0.2 mg/dL (0.00-1.00); Blood Urea Nitrogen 7 mg/dL (7-18); Calcium 8.9 mg/dL (8.5-10.1); Carbon Dioxide 29 mmol/L (21-32); Chloride 97 mmol/L (98-108); Estimated Glomerular Filt Rate > 60; Glucose 86 mg/dL (70-99); Osmolality Calculated 281 mOsm/kg (285-295); Potassium 3.2 mmol/L (3.5-5.1); Sodium 137 mmol/L (136-145); Total Protein 7.2 g/dL (6.4-8.2)
[2022-08-30 08:56] LABS: Valproic Acid 73.1 mg/L (50.0-100.0)
== END 2022-08-28 08:30 | disposition home or self-care (01) ==
LOC: CHSLAB 08:32
PROVIDERS: PCP Family Medicine
DX: R56.9 Unspecified convulsions (principal)
CPT/HCPCS: 36415; 80053; 80164; 85025

== ENCOUNTER 2023-06-13 14:58 | Outpatient (CLI) | payer MEDICARE, SELFPAY ==
[2023-06-13 15:23] LABS: Basophils Absolute Auto 0.03 K/mm3 (0.00-0.10); Basophils Percent Auto 0.4 % (0.0-1.0); Eosinophils Absolute Auto 0.28 K/mm3 (0.02-0.50); Eosinophils Percent Auto 3.9 % (1.0-6.0); Hematocrit 40.4 % (35.0-49.0); Hemoglobin 13.3 g/dL (12.0-15.0); Immature Granulocyte Absolute 0.01 K/mm3 (0.00-0.00); Immature Granulocyte Percent A 0.1 % (0.0-0.0); Lymphocytes Absolute Auto 2.55 K/mm3 (1.10-4.50); Lymphocytes Percent Auto 35.7 % (18.0-42.0); Mean Corpuscular HGB Conc 32.9 g/dL (32.0-36.0); Mean Corpuscular Hemoglobin 33.2 pg (27.0-31.0); Mean Corpuscular Volume 100.7 fL (78.0-102.0); Mean Platelet Volume 9.8 fl (9.2-11.8); Monocytes Absolute Auto 0.53 K/mm3 (0.10-0.90); Monocytes Percent Auto 7.4 % (2.0-11.0); Neutrophils Absolute Auto 3.7 K/mm3 (1.7-7.2); Neutrophils Percent Auto 52.5 % (50.0-70.0); Platelet Count Result 243 K/mm3 (150-420); Red Blood Count 4.01 M/mm3 (4.20-5.40); Red Cell Distribution Width 13.6 % (11.6-14.4); White Blood Count 7.1 K/mm3 (4.8-10.8)
[2023-06-13 15:38] LABS: Alanine Aminotransferase 16 U/L (14-59); Albumin Level 3.1 g/dL (3.4-5.0); Alkaline Phosphatase 54 U/L (46-116); Anion Gap 9 mmol/L (8-16); Aspartate Amino Transferase 11 U/L (15-37); Bilirubin,Total 0.2 mg/dL (0.00-1.00); Blood Urea Nitrogen 6 mg/dL (7-18); Calcium 8.9 mg/dL (8.5-10.1); Carbon Dioxide 28 mmol/L (21-32); Chloride 104 mmol/L (98-108); Estimated Glomerular Filt Rate > 60; Glucose 86 mg/dL (70-99); Osmolality Calculated 288 mOsm/kg (285-295); Potassium 3.6 mmol/L (3.5-5.1); Sodium 141 mmol/L (136-145); Total Protein 6.7 g/dL (6.4-8.2)
[2023-06-15 16:00] LABS: Valproic Acid 119.1 mg/L (50.0-100.0)
== END 2023-06-13 14:59 | disposition home or self-care (01) ==
LOC: CHSLAB 15:03
PROVIDERS: PCP Family Medicine
DX: R56.9 Unspecified convulsions (principal)
CPT/HCPCS: 36415; 80053; 80164; 85025

== ENCOUNTER 2025-04-01 14:49 | Outpatient (CLI) | payer MEDICARE, MEDICAID, SELFPAY ==
--- NOTE | ~2025-04-01 | MM_ITS ---
EXAMINATION: MM screening reji BI w ginna HISTORY: Screening TECHNIQUE: Craniocaudal and mediolateral oblique 3-D tomosynthesis images were obtained and synthetic 2-D images were generated. CAD analysis was submitted and interpreted. COMPARISON: No prior mammogram is available for comparison at this institution. BREAST PARENCHYMAL COMPOSITION: Dense: The breasts are heterogeneously dense, which may obscure small masses FINDINGS: There is no evidence of suspicious mass, calcification, or architectural distortion to sugg est malignancy in either breast. There has been no suspicious interval change. IMPRESSION: 1. No mammographic evidence of malignancy. 2. Recommend routine screening mammography in one year. BI-RADS Category 1: Negative Reviewed, dictated and finalized at location B.
--- OUTSIDE RECORDS SUMMARY | 2025-04-01 14:54 | XMS_ITS | Clinical Summary ---
Author Organization [facility] Address [address] [place] [address] Care Team Providers Care Software Support Analyst Name Role Phone Unavailable Primary Care Provider Unavailabl e Source Comments [facility],non-owned Affiliates and Associated Physician Practices is amultiple site organization consisting of ambulatory clinics and hospital sitesin [place], [place], [place] and [place]. This disclosure is being madepursuant to the Care Everywhere program and may not contain all information available regarding this patient. Last updated 18.[facility] Allergies No known active allergies Active Problems Problem Noted Date Diagnosed Date Abnormal first trimester screen-sequential scree n 01/25/2014 Supervision of other high-risk 014 Overview (07/09/2015): Social History Tobacco Use Types Packs/Day Years Used Date Smoking Tobacco: Never Assessed Comments No Sex and Gender Information Value Date Recorded Sex Assigned at Not on file Legal Sex Female 2:44 PM CDT Gender Identity Not on file Sexual Orientation Not on file Plan of Treatment Health Maintenance Due Date Last Done Comments COLOGUARD (AGES 45-75) - COL ON CA SCREENING 1978 COLON MONITORING 1978 COLONOSCOPY - COLON CA SCREENING 1978 CT COLONOGRAPHY - COLON CA SCREENING 1978 Colorectal Cancer Screening 1978 FIT - COLON CA SCREENING 1978 FLEX SIG - COLON CA SCREENING 1978 LIPID TESTING 1978 MAMMOGRAM 1978 HIV SCREENING 1993 HEPATITIS C SCREENING 12/02/1996 DTAP/TDAP/TD VACCINES (1 - Tdap) 1997 HEPATITIS B VACCINE (1 of 3 - 19+ 3-dose series) 1997 COVID-19 VACCINE (2023-2 5 season) 2024 DEPRESSION SCREENING 09/01/2024 INFLUENZA VACCINE (#1) 2025 ZOSTER VACCINE (1 of 2) 2028 HIB VACCINE Aged Out No longer eligi ble based on patient's age to complete this topic HPV VACCINE Aged Out No longer eligi ble based on patient's age to complete this topic MENINGOCOCCAL (Group B) VACC INE SHARED DECISION-MAKING Aged Out No longer eligibl e based on patient's age to complete this topic MENINGOCOCCAL GROUPS A/C/Y/W VACCINE Aged Out No longer eligible b ased on patient's age to complete this topic PNEUMOCOCCAL VACCINE Aged Out No long er eligible based on patient's age to complete this topic Insurance MEDICAID - [place] MEDICARE MEDICAID [facility]
== END 2025-04-01 14:50 | disposition home or self-care (01) ==
LOC: CHSIMG 14:53
PROVIDERS: PCP Family Medicine; Visit Provider Family Medicine
DX: Z12.31 Encounter for screening mammogram for malignant neoplasm of breast (principal)
CPT/HCPCS: 77063; 77067